=== PATIENT | male | born 1975 | race Caucasian/White ===

== ENCOUNTER 2023-07-24 18:38 | Emergency (ER) | payer OTHER ==
[2023-07-24] MEDS ORDERED: HYDROcodone/APAP 5-325MG 1 EACH TAB PO STA (19:21)
[2023-07-24] MEDS ORDERED: IBUPROFEN 800 MG TAB PO STA (19:21)
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
[2023-07-24] MEDS ORDERED: traMADol 50 MG STARTER PACK 3 TAB BTL PO STA (20:29)
[2023-07-24] MEDS ORDERED: MORPHINE SULFATE 4 MG/ML SYRINGE IM STA (20:29)
[2023-07-24] MEDS ORDERED: IBUPROFEN 600 MG STARTER PACK 4 TAB BTL PO STA (20:29)
[2023-07-24 20:44] VITALS: BP 117/88; PULSE 69; RESP 18; TEMP 97.9
== END 2023-07-24 20:44 | disposition home or self-care (01) ==
LOC: EC 18:38
DX: S02.40DA Maxillary fracture, left side, initial encounter for closed fracture (principal); S02.40FA Zygomatic fracture, left side, initial encounter for closed fracture; F17.200 Nicotine dependence, unspecified, uncomplicated; Z86.59 Personal history of other mental and behavioral disorders; Y04.0XXA Assault by unarmed brawl or fight, initial encounter
CPT/HCPCS: 70450; 70486; 72125; 99284